=== PATIENT | female | born 1995 | race African-American/Black ===

== ENCOUNTER 2020-04-29 05:33 | Inpatient (IN) | payer MEDICAID ==
[~2020-04-29] VITALS: Ht 157.5 cm; Wt 61.2 kg
[2020-04-29] MEDS ORDERED: MORPHINE SULFATE 4 MG/ML CPJ (NOT FOR IM USE) IV STA (06:29)
[2020-04-29 06:52] LABS: BASOPHILS % 0.6 % (0.0-2.0); EOSINOPHILS % 1.6 % (0.0-5.0); HEMATOCRIT. 36.5 % (36.0-48.0); HEMOGLOBIN. 12.4 g/dL (12.0-16.0); LYMPHOCYTES % 31.2 % (20.0-50.0); MEAN CORPUSCULAR HEMOGLOBIN 27.8 pg (28.0-32.0); MEAN CORPUSCULAR VOLUME 82.2 fL (81.0-99.0); MEAN PLATELET VOLUME 10.3 fl (7.4-10.4); MONOCYTES % 11.8 % (2.0-8.0); NEUTROPHILS % 54.8 % (40.0-76.0); PLATELET 199 x1000/uL (130-400); RED BLOOD CELL COUNT 4.44 mill/uL (4.2-5.4); RED CELL DISTRIBUTION WIDTH 15.4 % (11.6-14.6)
[2020-04-29 07:07] LABS: HCG SCREEN NEGATIVE
[2020-04-29 07:12] LABS: CHLORIDE 111 mEq/L (98-107)
[2020-04-29] MEDS ORDERED: VISCOUS LIDOCAINE 2% 15 ML UDC PO STA (07:32)
[2020-04-29] MEDS ORDERED: MAGNESIUM/ALUMINUM HYDROXIDE/SIMETHICONE 30ML UDC PO STA (07:32)
[2020-04-29] MEDS ORDERED: DICYCLOMINE 10 MG/5 ML ORAL SYR PO STA (07:32)
[2020-04-29 11:00] VITALS: BP 103/52
[2020-04-29] MEDS ORDERED: ONDANSETRON HCL 4MG/2ML INJ IV PRN (11:15)
[2020-04-29 11:30] VITALS: BP 103/52
[2020-04-29] MEDS: ASPIRIN 81MG EC TABLET PO SCH (14:54)
[2020-04-29 15:19] LABS: CLARITY URINE CLEAR (CLEAR); COLOR URINE YELLOW (YELLOW); KETONES URINE NEGATIVE (NEGATIVE); LEUKOCYTE ESTERASE URINE NEGATIVE (NEGATIVE); NITRITE URINE NEGATIVE (NEGATIVE); OCCULT BLOOD URINE TRACE (NEGATIVE); PH URINE 6.5 (4.5-8.0); PROTEIN URINE NEGATIVE (NEGATIVE); SPECIFIC GRAVITY URINE 1.011 (1.005-1.030)
[2020-04-29 15:33] LABS: *AMPHETAMINES SCREEN URINE NEGATIVE (NEGATIVE); *BARBITURATES SCREEN URINE NEGATIVE (NEGATIVE); *BENZODIAZEPINES SCREEN URINE NEGATIVE (NEGATIVE); *COCAINE SCREEN URINE NEGATIVE (NEGATIVE); METHADONE URINE SCREEN NEGATIVE (NEGATIVE); PHENCYCLIDINE URINE SCREEN NEGATIVE (NEGATIVE)
[2020-04-29 15:34] LABS: CANNABINOID URINE SCREEN NEGATIVE (NEGATIVE)
[2020-04-29 15:35] LABS: OPIATES URINE SCREEN PRESUMTIVE POSITIVE (NEGATIVE)
[2020-04-29 16:00] VITALS: BP 105/55
[2020-04-29] MEDS ORDERED: KETOROLAC 30MG/ML VIAL IV PRN (18:15)
[2020-04-29 20:00] VITALS: BP_SYST 105; BP_SYST 108; BP_SYST 119; BP_DIAS 51; BP_DIAS 60; BP_DIAS 67
[2020-04-29] MEDS ORDERED: FAMOTIDINE 20MG TABLET PO SCH (21:00)
[2020-04-30] VITALS: BP 107/36
[2020-04-30 04:00] VITALS: BP 103/56
[2020-04-30 06:41] LABS: BASOPHILS % 0.5 % (0.0-2.0); EOSINOPHILS % 1.7 % (0.0-5.0); HEMOGLOBIN. 12.2 g/dL (12.0-16.0); LYMPHOCYTES % 37.7 % (20.0-50.0); MEAN CORPUSCULAR HEMOGLOBIN 27.7 pg (28.0-32.0); MEAN PLATELET VOLUME 10.5 fl (7.4-10.4); MONOCYTES % 12.7 % (2.0-8.0); NEUTROPHILS % 47.4 % (40.0-76.0); PLATELET 192 x1000/uL (130-400); RED BLOOD CELL COUNT 4.39 mill/uL (4.2-5.4); RED CELL DISTRIBUTION WIDTH 15.3 % (11.6-14.6)
[2020-04-30 06:56] LABS: CHLORIDE 113 mEq/L (98-107)
[2020-04-30 08:00] VITALS: BP 103/55
[2020-04-30] MEDS: ASPIRIN 81MG EC TABLET PO SCH (08:44)
[2020-04-30 12:00] VITALS: BP 110/57
[2020-04-30 13:58] VITALS: BP 110/57
[2020-04-30] MEDS ORDERED: KETOROLAC 10MG TABLET PO NR (14:00)
[2020-04-30 14:48] VITALS: BP 110/57
== END 2020-04-30 16:05 | disposition home or self-care (01) | DRG 203 ==
LOC: ER 05:33 → 5WST 09:11 → EDBEDREQ 09:21 → EDBEDREQTM 09:21 → ENRESERV 09:45
PROVIDERS: ADMIT Internal Medicine; ATTEND Internal Medicine
DX: M94.0 Chondrocostal junction syndrome [Tietze] (principal); D72.819 Decreased white blood cell count, unspecified; E87.8 Other disorders of electrolyte and fluid balance, not elsewhere classified; G90.8 Other disorders of autonomic nervous system; Z96.651 Presence of right artificial knee joint; I45.10 Unspecified right bundle-branch block; Z79.82 Long term (current) use of aspirin; Z82.0 Family history of epilepsy and other diseases of the nervous system; Z88.0 Allergy status to penicillin
CPT/HCPCS: 36415; 71045; 80048; 80053; 80305; 81003; 83880; 84484; 84703; 85025; 85379; 93005; 93306; 99285; J1885; J2270

== ENCOUNTER 2022-10-07 16:55 | Emergency (ER) | payer MEDICAID ==
[~2022-10-07] VITALS: Ht 167.6 cm; Wt 65.0 kg
[2022-10-07 16:59] VITALS: BP 134/66
== END 2022-10-07 18:58 | disposition left against medical advice (07) ==
LOC: ER 16:55
DX: Z53.21 Procedure and treatment not carried out due to patient leaving prior to being seen by health care provider (principal)
CPT/HCPCS: 99281

== ENCOUNTER 2022-12-29 09:45 | Emergency (ER) | payer MEDICAID ==
[~2022-12-29] VITALS: Ht 157.5 cm; Wt 59.0 kg
[2022-12-29] MEDS ORDERED: HYDROCODONE/ACETAMINOPHEN 5/325MG TABLET PO ONE (12:00)
[2022-12-29] MEDS ORDERED: HYDR-4001 MT (13:18)
[2022-12-29 13:31] VITALS: BP 133/72
== END 2022-12-29 13:32 | disposition home or self-care (01) ==
LOC: ER 09:45
DX: S49.91XA Unspecified injury of right shoulder and upper arm, initial encounter (principal); Z88.0 Allergy status to penicillin; Z98.890 Other specified postprocedural states; W06.XXXA Fall from bed, initial encounter; Y93.89 Activity, other specified; Y92.89 Other specified places as the place of occurrence of the external cause; Y99.8 Other external cause status
CPT/HCPCS: 73030; 73080; 73090; 73110; 81025; 99284

== ENCOUNTER 2024-03-23 07:29 | Emergency (ER) | payer MEDICAID ==
[~2024-03-23] VITALS: Ht 157.5 cm; Wt 59.0 kg
[~2024-03-23 07:29] MED LIST: HYDR-4001 MT
[2024-03-23 07:54] VITALS: BP 121/64; PULSE 94; RESP 18; O2SAT 99
[2024-03-23 08:52] VITALS: TEMP 98.9
[2024-03-23] MEDS: ACETAMINOPHEN 325MG TABLET PO STA (08:52)
[2024-03-23 09:09] LABS: BASOPHILS % 0.4 % (0.0-2.0); HEMATOCRIT. 35.9 % (36.0-48.0); HEMOGLOBIN. 12.1 g/dL (12.0-16.0); LYMPHOCYTES % 20.4 % (20.0-50.0); MEAN CORPUSCULAR HEMOGLOBIN 28.1 pg (28.0-32.0); MEAN CORPUSCULAR HGB CONC 33.7 g/dL (31.0-37.0); MEAN CORPUSCULAR VOLUME 83.6 fL (81.0-99.0); MEAN PLATELET VOLUME 10.2 fl (7.4-10.4); MONOCYTES % 8.1 % (2.0-8.0); NEUTROPHILS % 70.1 % (40.0-76.0); PLATELET 238 x1000/uL (130-400); RED BLOOD CELL COUNT 4.29 mill/uL (4.2-5.4); RED CELL DISTRIBUTION WIDTH 14.7 % (11.6-14.6); WHITE BLOOD COUNT 4.7 x1000/uL (4.5-11.0)
[2024-03-23 09:17] LABS: CARBON DIOXIDE 20 mEq/L (21-32); CHLORIDE 112 mEq/L (98-107); POTASSIUM 3.7 mEq/L (3.5-5.1); SODIUM 139 mEq/L (136-145)
[2024-03-23 09:18] LABS: CALCIUM 8.8 mg/dL (8.7-10.4)
[2024-03-23 09:23] LABS: CREATININE 0.6 mg/dL (0.6-1.0); GLUCOSE 105 mg/dL (70-105); UREA NITROGEN BLOOD 5 mg/dL (9-23)
[2024-03-23 09:24] LABS: ALANINE AMINOTRANSFERASE < 7 IU/L (10-49)
[2024-03-23 09:25] LABS: ALBUMIN 4.3 g/dL (3.2-4.8); BILIRUBIN DIRECT 0.2 mg/dL (<=3.0); BILIRUBIN TOTAL 0.4 mg/dL (0.1-1.0)
[2024-03-23 09:28] LABS: ASPARTATE AMINOTRANSFERASE < 8 IU/L (<34)
[2024-03-23 09:31] LABS: HCG SCREEN NEGATIVE
[2024-03-23] MEDS ORDERED: KETO10TA2 MT (12:04)
== END 2024-03-23 12:11 | disposition home or self-care (01) ==
LOC: ER 07:29
DX: R10.31 Right lower quadrant pain (principal); Z90.49 Acquired absence of other specified parts of digestive tract; Z88.0 Allergy status to penicillin
CPT/HCPCS: 36415; 74176; 76856; 80048; 80076; 81025; 84703; 85025; 99284